=== PATIENT | male | born 1950 | race Caucasian/White ===

== ENCOUNTER 2024-06-09 09:39 | Outpatient (REF) | payer MEDICARE, MEDICAID, SELFPAY ==
--- NOTE | 2024-06-12 09:26 | MHC.AU.MED ---
Medical Clearance for Hearing Instrumentation Date: 06/12/24 Patient Name: Tj Vega Date of : 1950 Primary Care Provider: Charito Gustafson MD Referring Provider: Pam Mckenzie NP We have seen your patient on 06/12/24 and have determined that they are a candidate for amplification (See accompanying report). Specifically, they would benefit from: Hearing aid use in both ears There is a statute that addresses Medical Evaluation Requirements prior to fitting a patient with a hearing aid. According to [place] statute 265 CMR:6.03(1), (a) General. Except as provided in 265 CMR 6.03(1)(b), a hearing instrument specialist shall not sell a hearing aid unless the prospective user has presented to the hearing instrument specialist a written statement signed by a licensed physician that states that the patient's hearing loss has been medically evaluated and the patient may be considered a candidate for a hearing aid. The medical evaluation must have taken place within the preceding six months. Please note: Due to the [place] Statute referenced above, we cannot accept a signature other than that of a licensed physician. COMMISSIONER OF CONCILIATION and PA signatures cannot be accepted. I am in agreement with the above recommendation. There is no medical contraindication for hearing instrumentation. Physician Signature Date Physician Name (Printed)
== END 2024-06-09 09:40 | disposition home or self-care (01) ==
LOC: HO.SH 09:39
PROVIDERS: PCP Family Medicine; Visit Provider Nurse Practitioner
DX: Z01.118 Encounter for examination of ears and hearing with other abnormal findings (principal); Z46.1 Encounter for fitting and adjustment of hearing aid; H90.3 Sensorineural hearing loss, bilateral
CPT/HCPCS: 92553; 92591; V5275

== ENCOUNTER 2024-07-13 12:33 | Outpatient (REF) | payer MEDICARE, MEDICAID, SELFPAY | END 2024-07-13 12:34 | disposition home or self-care (01) | LOC: HO.HAP 12:33 | PROVIDERS: Visit Provider Family Medicine | DX: Z46.1 Encounter for fitting and adjustment of hearing aid (principal); H90.3 Sensorineural hearing loss, bilateral | CPT/HCPCS: V5011; V5020; V5160; V5261; V5264 ==

== ENCOUNTER 2024-07-25 15:10 | Outpatient (REF) | payer MEDICARE, MEDICAID, SELFPAY | END 2024-07-25 15:11 | disposition home or self-care (01) | LOC: HO.HAP 15:10 | PROVIDERS: Visit Provider Family Medicine | DX: Z13.89 Encounter for screening for other disorder (principal) ==

== ENCOUNTER 2024-08-03 14:14 | Outpatient (REF) | payer MEDICARE, MEDICAID, SELFPAY | END 2024-08-03 14:15 | disposition home or self-care (01) | LOC: HO.HAP 14:14 | PROVIDERS: Visit Provider Family Medicine | DX: Z13.89 Encounter for screening for other disorder (principal) ==

== ENCOUNTER 2024-08-17 14:21 | Outpatient (REF) | payer MEDICARE, MEDICAID, SELFPAY | END 2024-08-17 14:22 | disposition home or self-care (01) | LOC: HO.HAP 14:21 | PROVIDERS: Visit Provider Family Medicine | DX: Z13.89 Encounter for screening for other disorder (principal) ==

== ENCOUNTER 2025-05-03 13:44 | Outpatient (REF) | payer MEDICARE, MEDICAID, SELFPAY ==
--- OUTSIDE RECORDS SUMMARY | 2025-05-03 16:09 | XMS_ITS | Encounter Summary ---
Author Organization [employer] Address [address] [facility] [place] [address] Care Team Providers Care Assembler Adjuster Name Role Phone Do Iqbal Primary Care Provider UnavailAria Barber Unavailable Unavailable Charito Gustafson DO Primary Care Provider [phone] Encounter Details Date Type Department Care Team (Late st Contact Info) Description 02/10/2024 Telephone [facility] MED[facility] [address] [place] [address] Do Iqbal PA Social History Tobacco Use Types Packs/Day Years Used Date Smoking Tobacco: Former Cigarettes Passive Smoke Exposure: Past Comments:Occasional smoker i n the past Alcohol Use Standard Drinks/Week Comments Yes 2 (1 standard drink = 0.6 oz pur e alcohol) Occassionally Housing Stability Answer Date Recorded What is your housing situation today? I have gerribetzy soria 09/08/[address] you li ve. Do you have problems with any of the following? None of the above 09/08/2023 Food Insecurity Answer Date Recorded Within the past 12 months, y ou worried that your food would run out before you got money to buy more: Never True 09/08/2023 Within the past 12 months,th e food you bought just didn't last and you didn't have enough money to get more: Never True Transportation Answer Date Recorded In the past 12 months, has l ack of transportation kept you from medical appts, meetings, work or from getting things needed for daily living? No 09/08/2023 Utilities Answer Date Recorded In the past 12 months, has t he electric, gas, oil or water company threatened to shut off services in your home? No 09/08/2023 Depression Answer Date Recorded Patient Health Questionnaire-2 Score 0 09/01/2023 Sex and Gender Information Value Date Recorded Sex Assigned at Male 02/18/2023 3:16 PM EDT Legal Sex Male 8:36 PM EDT Gender Identity Male 02/18/2023 3:16 PM EDT Sexual Orientation Choose not to disclose 2022 3:16 PM EDT Occupation Industry Job Start Date Job End Date Retired Not on file Not on file Not on file documented as of this encounter Plan of Treatment Not on file documented as of this encounter Visit Diagnoses Not on filedocumented in this encounter Care Teams Assembler Adjuster Relationship Specialty Start Date End Date Do Iqbal PA PCP - General Family Medicine 08/10/23 03/26/25 Charito Gustafson DO [address] [place] [id number] PCP - General Family Medicine 03/27/25 Aria Mcgraw Community Health Worker 03/30/24 documented as of this encounter
--- NOTE | 2025-05-04 11:12 | MHC.AU.HA3 ---
Hearing Instrument Follow-Up- Binaural Date of Visit: 05/03/25 Right Ear: Make, Model, Color, Serial Number: Oticon Real 2 miniRTE R, chroma beige [id number] Principal Consulting Engineer Repair Warranty: 08/02/2027 Principal Consulting Engineer Loss and Damage Warranty: 08/02/2027 [facility] Service Plan: Battery Size: Rechargeable Peanut Blancher/Slim Tube: 3 85g Earmold/Dome/CShell/SlimTip:skeleton mold [id number] Warranty 10/18/2024 Type of Wax Guard: Prowax Dispensed By: [facility] Date of Fittin07/13/24 Left Ear: Make, Model, Color, Serial Number: Oticon Real 2 miniRTE R, chroma beige [id number] Principal Consulting Engineer Repair Warranty: 08/02/2027 Principal Consulting Engineer Loss and Damage Warranty: 08/02/2027 [facility] Service Plan: Battery Size: Rechargeable Peanut Blancher/Slim Tube: 3 85g Earmold/Dome/CShell/SlimTip: skeleton mold [id number] Warranty 10/18/2024 Type of Wax Guard: Prowax Dispensed By: [facility] Date of Fittin07/13/24 Follow-Up Summary: 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 Report he has not been hearing well, have tried OTC devices/amplifiers but nothing seems to help. Note he had wax removed by PCP who stated he still had deep wax in canals after flushing, have been using drops at home. Otoscopy shows canals clear of wax but some moisture visible against TM, likely drops. Recommend discontinuing drops to allow them to dry for a few weeks then ok to resume monthly drops. Cleaned hearing aids, replaced wax guards, listening check ok. Communication with Tj difficult today as he was in quite a bit of discomfort, due to OT earlier today according to elementary teacher. Increased high frequency gain for improved clarity, Tj reported better sound quality and easier time hearing in office. Recommend returning for updated hearing test as his is nearly 1 year old and it seems there may be a change in hearing. Partner will request order from PCP. Recommendations: Recommendations (Other): Return for updated hearing evaluation. Diagnosis Code(s): Primary Diagnosis: H90.3 Bilateral Sensorineural Hearing Loss Signature: Provider: Jeramie Feliz, CCC-A
== END 2025-05-03 13:45 | disposition home or self-care (01) ==
LOC: HO.HAP 13:44
PROVIDERS: Visit Provider Family Medicine
DX: Z13.89 Encounter for screening for other disorder (principal)

== ENCOUNTER 2025-05-03 14:35 | Outpatient (REF) | payer SELFPAY | END 2025-05-03 14:36 | disposition home or self-care (01) | LOC: HO.SH 14:35 | PROVIDERS: Visit Provider Family Medicine | DX: Z01.118 Encounter for examination of ears and hearing with other abnormal findings (principal); H90.3 Sensorineural hearing loss, bilateral | CPT/HCPCS: V5267 ==